=== PATIENT | male | born 1995 | race Caucasian/White ===

== ENCOUNTER 2019-11-01 11:17 | Emergency (ER) | payer BC ==
[2019-11-01 12:06] VITALS: BP 130/74
--- NOTE | 2019-11-01 12:07 | UC ---
Throat Pain/Nasal Tig[place] HPI - HPI Summary HPI Summary: 23yo male presenting with girlfriend for nasal congestion and sinus pressure x3 days. Also notes PND and sore throat from it. Denies cough. Denies fever and chills. Denies n/v. Denies concern for the flu. States he "gets this every year and usually gets a nasal spray prescribed to him." - History of Current Complaint Chief Complaint: UCGeneralIllness Stated Complaint: CONGESTION Hx Obtained From: Patient Pain Intensity: 0 - Allergies/Home Medications Allergies/Adverse Reactions: Allergies Allergy/AdvReac Type Severity Reaction Status Date / Time No Known Allergies Allergy Verified 11/01/19 12:03 Home Medications: Home Medications Dm/PE/Acetaminophen/Doxylamine [Nighttime Severe Cold-Flu Liq] 1 dose PO ONCE [History Confirmed 11/01/19] Fluoxetine HCl 40 mg PO DAILY 11/01/19 [History Confirmed 11/01/19] Fluticasone NASAL SPRAY 50MCG* [Flonase NASAL SPRAY 50MCG*] 2 spray BOTH NARES DAILY PRN #1 btl 11/01/19 [Rx] Ibuprofen/Pseudoephedrine HCl [Advil Cold & Sinus Caplet] 1 dose PO ONCE [History Confirmed 11/01/19] Pseudoephedrine HCL ER TAB* [Sudafed 12 Hour*] 120 mg PO BID PRN #24 tab.er 10/21 [Rx] PMH/Surg Hx/FS Hx/Imm Hx Previously Healthy: Yes - Surgical History Surgical History: None - Family History Known Family History: Positive: Non-Contributory - Social History Alcohol Use: Occasionally Substance Use Type: None Smoking Status (MU): Never Smoked Tobacco Review of Systems All Other Systems Reviewed And Are Negative: Yes Constitutional: Positive: Negative ENT: Positive: Sore Throat, Nasal Discharge - PND, Sinus Congestion, Sinus Pain/ Tenderness. Negative: Ear Ache Respiratory: Positive: Negative Cardiovascular: Positive: Negative Gastrointestinal: Positive: Negative Musculoskeletal: Negative: Myalgia Neurological/Mental Status: Positive: Negative Physical Exam - Summary Physical Exam Summary: Vital Signs Reviewed: Yes A+Ox3, no distress, well-appearing Eyes: Conjunctiva Clear ENT: Hearing grossly normal, TM x 2 clear, +PND, +nasal discharge, moist, uvula midline, no exudate, no erythema Neck: Positive: Supple Respiratory: Positive: No respiratory distress, No accessory muscle use + CTA throughout no w/r Cardiovascular: RRR nl s1, s2 no m/r Musculoskeletal Exam: BROWN x 4 without difficulty Neurological: Positive: Alert Psychological: Positive: age appropriate behavior Skin: Positive: no rash, no ecchymosis Vital Signs: Initial Vital Signs Temp 98.4 F 11/01/19 12:04 Pulse 81 11/01/19 12:04 Resp 18 11/01/19 12:04 BP 130/74 11/01/19 12:04 Pulse Ox 100 11/01/19 12:04 Throat Pain/Nasal Course/Dx - Course Course Of Treatment: Discussed viral URI and symptomatic treatment. I provided the patient with Flonase and Sudafed per his request and instructed to follow up with [facility] if needed. Patient voiced understanding and agreed with treatment plan. - Differential Dx/Diagnosis Differential Diagnosis/HQI/PQRI: Influenza, Sinusitis, URI Provider Diagnosis: Viral URI Discharge ED - Sign-Out/Discharge Documenting (check all that apply): Patient Departure All imaging exams completed and their final reports reviewed: No Studies - Discharge Plan Condition: Stable Disposition: HOME Prescriptions: Fluticasone NASAL SPRAY 50MCG* [Flonase NASAL SPRAY 50MCG*] 2 spray BOTH NARES DAILY PRN #1 btl PRN Reason: Congestion Pseudoephedrine HCL ER TAB* [Sudafed 12 Hour*] 120 mg PO BID PRN #24 tab.er PRN Reason: Congestion Patient Education Materials: Upper Respiratory Infection (ED) Forms: *Work Release Referrals: [facility] [Outside] - If Needed Additional Instructions: Take the sudafed and use flonase as directed. Get plenty of rest and increase fluids. Follow up with your primary care provider or the [facility] listed below if symptoms persist. - Billing Disposition and Condition Condition: STABLE Disposition: Home
== END 2019-11-01 12:24 | disposition home or self-care (01) ==
LOC: UCCORT 11:17
DX: J06.9 Acute upper respiratory infection, unspecified (principal)
CPT/HCPCS: 99202; G0463